=== PATIENT | male | born 1950 | race Asian ===

== ENCOUNTER 2023-12-10 07:07 | Emergency (ER) | payer MEDICARE, SELFPAY ==
[2023-12-10 07:12] VITALS: BP 136/88
--- NOTE | 2023-12-10 08:13 | ED.GENMED ---
History of Present Illness
General
Chief Complaint: Urinary Symptoms
Source: patient and family
Exam Limitations: none
Time Seen by Provider: 12/10/23 07:55
Nursing documentation reviewed up to this point in time: agreed with
History of Present Illness
History of Present Illness:
Patient is a 73-year-old male brought to the ER by son for evaluation. Son reports patient gets frequent UTIs and is on his second round of antibiotics in the past 4 weeks by his family doctor. Took 8 days of the last antibiotic but stopped it
because symptoms were not improving. He feels that he is not emptying his bladder but urinating small amounts every 15 minutes. He does complain of pressure inside his lower abdomen. He denies any fever chills . He does complain of some back
pain.
Review of Systems
Review of Systems
Allergies reviewed?: Yes
Other source history: family
All Other Systems: ROS reviewed and negative except as documented in HPI and ROS
Constitutional: Reports no symptoms
Respiratory: Reports no symptoms
Cardiac: Reports no symptoms
ABD/GI: Reports abdominal pain; Denies nausea, vomiting or diarrhea
: Reports dysuria, frequency and difficulty voiding
Musculoskeletal: Reports back pain
Skin: Reports no symptoms
Neurological: Reports no symptoms
Psychiatric: Reports no symptoms
Phy Exam
General Physical Exam
General Presentation: no apparent distress
General age: appears stated age
General Skin: warm and dry
General Habitus: normal
General Mental: alert
General Hydration: appears well hydrated
Gastrointestinal Exam
Gastrointestinal Exam: non tender and soft
Neurological Exam
Neurological Exam: alert and oriented x3
Musculoskeletal Exam
Musculoskeletal Exam: full ROM and other (No CVA tenderness)
Skin Exam
Skin Exam: normal color and warm/dry
Psychiatric Exam
Psychiatric Exam: normal mood/affect
Course
Orders/Labs/Results
Orders:
Orders
12/10/23 08:06
Bladder Scan- Treatment ONCE
12/10/23 08:07
IV Insert/Care/Rem.- Treatment PRN
12/10/23 09:00
Complete Blood Count/With Diff Urgent
Comprehensive Metabolic Panel Urgent
12/10/23 09:02
Urinalysis Reflex To Culture Urgent
Date Specimen was Collected: 12/10/23
Time Specimen was Collected: 09:01
12/10/23 09:48
CT Abd/pel Without Iv Or Oral Urgent
Comment:
Reason For Exam: urinary s/s
Abnormal Lab Results
12/10/23 12/10/23
09:00 09:02
Creatinine 0.6 L mg/dL
(0.7-1.3)
Glucose 116 H mg/dl
(70-99)
ALT 65 H U/L
(0-50)
Urine Glucose Trace A
(Negative)
12/10/23 09:00
12/10/23 09:00
Vital Signs
Initial and Last Documented VS:
Initial Vital Signs
Temp Pulse Resp BP Pulse Ox
97.9 F 67 17 136/88 94
12/10/23 07:12 12/10/23 07:12 12/10/23 07:12 12/10/23 07:12 12/10/23 07:12
Last Documented Vital Signs
Temp Pulse Resp BP Pulse Ox
97.9 F 66 18 138/83 93
12/10/23 07:12 12/10/23 09:04 12/10/23 09:04 12/10/23 10:00 12/10/23 10:00
Weatherization Installer consulted with Physician
Weatherization Installer consulted with physician?: Yes
Name of Physician Consulted: chele [age]-year-old urgency is he does not like he is emptying his blad
MDM/Problems Addressed
Differential Diagnosis Includes:
Not limited to urinary tract infection renal colic urinary retention renal stone
MDM/Problems Addressed:
Patient presented with urinary symptoms of dysuria frequency difficulty urinating though he is able to urinate here. He was on antibiotics twice. He denies any actual fever chills he arrives afebrile with a normal white count abdomen soft
nontender. Patient with normal renal function. He does complain of lower abdominal discomfort but nontender on exam. UA negative CAT scan however does show 11 x 3 mm calcification in the midline superior margin of the prostate extending to the
base of the urinary bladder likely urethral calculus. Case reviewed with ED physician Case reviewed with urology on-call Dr. Gant who recommends outpatient follow-up in the office will need cystoscopy and stone removal will prescribe
tamsulosin and Pyridium for reducing symptoms. Discussed with patient and family agreeable this plan of care feels well to go home and no acute distress looks well nontoxic.
*Critical Care Note
Total Time (30-74mins, 75-104mins- exclusive of procedures): Not Applicable
ED Attending Note
-
Portions of this chart may have been created with voice recognition software.� Occasional wrong word or��sound alike� substitutions may have occurred due to the inherent limitations of voice recognition software.
Discharge Plan
Departure
Patient Disposition: Home (Routine Discharge)
Date of Disposition: 12/10/23
Time of Disposition: 11:56
Patient with high blood pressure during this ER visit?: Yes
Condition: Fair
Covid-19: Not Applicable
Discharge Problem:
Calculus in urethra
Instructions: Kidney stones in adults, BLOOD PRESSURE
Prescriptions:
New
tamsulosin [Flomax] 0.4 mg capsule
0.4 mg PO DAILY Qty: 7 0RF
phenazopyridine [Pyridium] 200 mg tablet
200 mg PO TID Qty: 6 0RF
Referrals:
Robert Gant MD [Active] -
Bam Connolly DO [Family Provider] -
Activity Restrictions/Additional Instructions:
As discussed follow-up with urology call tomorrow to make an appointment. 2 prescriptions were sent to pharmacy take as directed for discomfort and for stone. Return if any worsening of symptoms of increasing pain nausea vomiting back pain fever
chills.
Interventions
Interventions:
*Risk Screen - Suicide Last Done: 12/10/23 10:34
*General Assessment Last Done: 12/10/23 08:43
*Neglect/Abuse Screening Last Done: 12/10/23 10:34
ED- Fall Risk Assessment Last Done: 12/10/23 08:43
*ED COVID-19 Vaccine History Last Done: 12/10/23 08:43
ED-Male Genitourinary Assessment Last Done: 12/10/23 08:43
Discharge Date and Time
Print Language: SAMOAN
[2023-12-10 08:43] VITALS: BMI 25.9
[2023-12-10 08:52] VITALS: BP 151/80
[2023-12-10 09:00] VITALS: BP 152/90
[2023-12-10 09:18] LABS: % Basophils 0.2 % (0-2); % Eosinophils 1.5 % (0-6); % Immature Granulocytes 0.4 % (0-0.5); % Lymphocytes 29.8 % (20.5-51.1); % Monocytes 9.1 % (1.7-9.3); Absolute Eosinophils 0.1 10^3/uL (0-0.7); Absolute Lymphocytes 1.6 10^3/uL (1.2-3.4); Absolute Monocytes 0.5 10^3/uL (0.1-0.6); Absolute Neutrophils 3.2 10^3/uL (1.4-6.5); Hematocrit 46.4 % (39.0-52.0); Hemoglobin 15.7 g/dL (13.0-18.0); Mean Corp Hgb Conc. 33.8 g/dL (33.0-37.0); Mean Corpuscular Hgb 28.8 pg (27.0-31.0); Mean Corpuscular Volume 85.1 fL (80.0-94.0); Mean Platelet Volume 9.2 fL (7.4-10.4); Nucleated Red Blood Cells % 0 % (-); Platelet Count 228 10^3/uL (130-400); Red Blood Cell Count 5.45 10^6/uL (4.70-6.10); White Blood Cell Count 5.5 10^3/uL (4.8-10.8)
[2023-12-10 09:19] LABS: Urine Albumin Negative (Neg - Trace); Urine Bilirubin Negative (Negative); Urine Character Clear (Clear); Urine Color Yellow; Urine Glucose Trace (Negative); Urine Ketone Negative (Negative); Urine Leukocyte Negative (Negative); Urine Nitrite Negative (Negative); Urine Occult Blood Negative (Negative); Urine Specific Gravity 1.015 (<1.030); Urine Urobilinogen Negative (Neg - 1+)
[2023-12-10 09:29] LABS: ALT (SGPT) 65 U/L (0-50); AST (SGOT) 41 U/L (17-59); Albumin 4.7 g/dl (3.5-5.0); Alkaline Phosphatase 78 U/L (38-126); Blood Urea Nitrogen 13 mg/dl (9-20); Calcium 9.8 mg/dl (8.4-10.2); Carbon Dioxide 28 mmol/L (22-30); Chloride 103 mmol/L (98-107); Estimated Creatinine Clearance 87 ml/min; Glucose 116 mg/dl (70-99); Potassium 4.2 mmol/L (3.5-5.1); Sodium 137 mmol/L (135-145); Total Bilirubin 0.8 mg/dl (0.2-1.3); Total Protein 7.2 g/dl (6.3-8.2); eGFR > 60.00
[2023-12-10 10:00] VITALS: BP 138/83
[2023-12-10 12:00] VITALS: BP 129/81
== END 2023-12-10 12:45 | disposition home or self-care (01) ==
LOC: EMR 07:07
PROVIDERS: Nurse Practitioner; EMERGENCY PHYSICIAN Emergency Medicine; FAMILY PHYSICIAN Internal Medicine
DX: N21.1 Calculus in urethra (principal); R03.0 Elevated blood-pressure reading, without diagnosis of hypertension; Z87.440 Personal history of urinary (tract) infections
CPT/HCPCS: 99284; 51798; 74176; 80053; 81003; 85025

== ENCOUNTER → 2023-12-21 07:11 | Outpatient (REF) | payer MEDICARE, SELFPAY | LOC: HWRAD 07:11 | PROVIDERS: ATTENDING PHYSICIAN Internal Medicine | DX: R10.9 Unspecified abdominal pain (principal) | CPT/HCPCS: 76700 ==

== ENCOUNTER → 2024-06-20 10:10 | Outpatient (REF) | payer MEDICARE, SELFPAY | LOC: RAD 10:10 | PROVIDERS: ATTENDING PHYSICIAN Internal Medicine | DX: R05.9 Cough, unspecified (principal) | CPT/HCPCS: 71046 ==